=== PATIENT | female | born 1960 | race Caucasian/White ===

== ENCOUNTER 2017-12-05 19:06 | Emergency (ER) | payer OTHER ==
[~2017-12-05] VITALS: Ht 157.5 cm; Wt 68.5 kg
[~2017-12-05 19:06] MED LIST: ADVIL100 M1
== END 2017-12-05 21:13 | disposition home or self-care (01) ==
LOC: ER 19:06
DX: M65.842 Other synovitis and tenosynovitis, left hand (principal)

== ENCOUNTER 2018-05-13 21:08 | Emergency (ER) | payer OTHER ==
[~2018-05-13] VITALS: Ht 154.9 cm; Wt 68.0 kg
== END 2018-05-13 22:48 | disposition home or self-care (01) ==
LOC: ER 21:08
DX: S99.821A Other specified injuries of right foot, initial encounter (principal); X58.XXXA Exposure to other specified factors, initial encounter; Y93.89 Activity, other specified; Y92.89 Other specified places as the place of occurrence of the external cause; Y99.8 Other external cause status

== ENCOUNTER 2018-12-08 18:11 | Emergency (ER) | payer OTHER ==
[~2018-12-08] VITALS: Ht 154.9 cm; Wt 66.7 kg
== END 2018-12-08 20:29 | disposition home or self-care (01) ==
LOC: ER 18:11
DX: N30.80 Other cystitis without hematuria (principal)

== ENCOUNTER 2020-04-19 10:29 | Emergency (ER) | payer OTHER ==
[~2020-04-19] VITALS: Ht 154.9 cm; Wt 67.1 kg
[2020-04-19] MEDS ORDERED: NORFLEX100MG PO (13:07)
[2020-04-19] MEDS ORDERED: KETO10TA2 PO (13:07)
== END 2020-04-19 13:15 | disposition home or self-care (01) ==
LOC: ER 10:29
DX: M79.641 Pain in right hand (principal)

== ENCOUNTER 2020-06-04 11:58 | Emergency (ER) | payer OTHER ==
[~2020-06-04] VITALS: Ht 154.9 cm; Wt 65.3 kg
[~2020-06-04 11:58] MED LIST changes: +KETO10TA2 PO; +NORFLEX100MG PO
== END 2020-06-04 16:12 | disposition home or self-care (01) ==
LOC: ER 11:58
DX: N39.0 Urinary tract infection, site not specified (principal); N20.0 Calculus of kidney

== ENCOUNTER 2021-03-09 10:09 | Emergency (ER) | payer OTHER ==
[~2021-03-09] VITALS: Ht 154.9 cm; Wt 64.9 kg
[2021-03-09] MEDS ORDERED: METFORMIN HCL500 M3 PO (10:37)
[2021-03-09] MEDS ORDERED: LIPITOR20 MG PO (10:38)
== END 2021-03-09 18:12 | disposition home or self-care (01) ==
LOC: ER 10:09
DX: R10.9 Unspecified abdominal pain (principal); K57.30 Diverticulosis of large intestine without perforation or abscess without bleeding

== ENCOUNTER 2021-12-22 18:02 | Inpatient (IN) | payer OTHER ==
[~2021-12-22] VITALS: Ht 154.9 cm; Wt 57.6 kg
[~2021-12-22 18:02] MED LIST changes: +LIPITOR20 MG PO; +METFORMIN HCL500 M3 PO
[2021-12-26] MEDS ORDERED: ATORVASTATIN CA40 MG (15:09)
[2021-12-26] MEDS ORDERED: METFORMIN HCL500 MG PO (16:47)
[2021-12-26] MEDS ORDERED: INTESTINEX680 M1 PO (16:47)
[2021-12-26] MEDS ORDERED: LEVOFLOXACIN750 MG PO (16:47)
[2021-12-26] MEDS ORDERED: LIPITOR40 MG PO (16:47)
== END 2021-12-26 22:55 | disposition home or self-care (01) | DRG 690 ==
LOC: ER 18:02 → SEC-K 22:06 → SURH 22:06
PROVIDERS: ADMIT Internal Medicine; ATTEND Internal Medicine
PROC: BW21ZZZ Computerized Tomography (CT Scan) of Abdomen and Pelvis (ICD-10-PCS; principal; 2021-12-22)
DX: N39.0 Urinary tract infection, site not specified (principal); R31.9 Hematuria, unspecified; R30.0 Dysuria; E86.0 Dehydration; B96.20 Unspecified Escherichia coli [E. coli] as the cause of diseases classified elsewhere; K57.30 Diverticulosis of large intestine without perforation or abscess without bleeding; I10 Essential (primary) hypertension; E11.9 Type 2 diabetes mellitus without complications; Z79.84 Long term (current) use of oral hypoglycemic drugs; E78.49 Other hyperlipidemia; Z20.822 Contact with and (suspected) exposure to COVID-19

== ENCOUNTER 2024-10-27 20:52 | Emergency (ER) | payer OTHER ==
[~2024-10-27] VITALS: Ht 154.9 cm; Wt 59.0 kg
[~2024-10-27 20:52] MED LIST changes: +ATORVASTATIN CA40 MG; +INTESTINEX680 M1 PO; +LEVOFLOXACIN750 MG PO; +LIPITOR40 MG PO; +METFORMIN HCL500 MG PO
[2024-10-27] MEDS ORDERED: ARBLI10 MG/1 ML (21:42)
[2024-10-27] MEDS ORDERED: KETOROLAC TROMETHAMINE 60 MG VIAL IM ONE ×2 (23:15→23:21)
[2024-10-27] MEDS ORDERED: CEFTRIAXONE SODIUM 1,000 MG VIAL IM ONE (23:45)
[2024-10-27] MEDS ORDERED: DIPHTH,PERTUSS(ACELL),TET VAC 0.5 ML VIAL IM ONE (23:45)
[2024-10-27] MEDS ORDERED: DIPHTH,PERTUSS(ACELL),TET VAC 0.5 ML SYRINGE IM ONE (23:57)
[2024-10-27] MEDS ORDERED: CEFTRIAXONE SODIUM 1,000 MG VIAL ONE (23:57)
[2024-10-28] MEDS ORDERED: IBUPROFEN600 MG PO (00:18)
[2024-10-28] MEDS ORDERED: NORFLEX100MG PO (00:18)
== END 2024-10-28 01:55 | disposition home or self-care (01) ==
LOC: ER 21:21
DX: S49.82XA Other specified injuries of left shoulder and upper arm, initial encounter (principal); S89.81XA Other specified injuries of right lower leg, initial encounter; S59.802A Other specified injuries of left elbow, initial encounter; W19.XXXA Unspecified fall, initial encounter; Y93.89 Activity, other specified; Y92.89 Other specified places as the place of occurrence of the external cause; Y99.8 Other external cause status; I10 Essential (primary) hypertension; E11.9 Type 2 diabetes mellitus without complications; Z79.84 Long term (current) use of oral hypoglycemic drugs; Z88.5 Allergy status to narcotic agent; Z91.013 Allergy to seafood
CPT/HCPCS: 29105; 73030; 73070; 73560; 96372; 99283; J0696; J1885; J3490

== ENCOUNTER 2025-01-30 14:10 | Emergency (ER) | payer OTHER ==
[~2025-01-30] VITALS: Ht 154.9 cm; Wt 57.2 kg
[~2025-01-30 14:10] MED LIST changes: +ARBLI10 MG/1 ML; +IBUPROFEN600 MG PO
[2025-01-30] MEDS ORDERED: NORVASC2.5 M1 (14:40)
[2025-01-30 17:02] LABS: BASO % 0.6 % (0.1-1.2); EOS # 0.19 (0.04-0.54); EOS % 1.3 % (0.7-7.0); LYMPH # 5.33 (1.18-3.74); LYMPH % 37.0 % (19.3-53.1); MEAN PLATELET VOLUME 10.30 fl (9.4-12.4); MONO # 1.22 (0.24-0.82); MONO % 8.5 % (4.7-12.5); NEUT # 7.50 (1.56-6.13); NEUT % 52.1 % (34.0-71.1); RED CELL DISTRIBUTION WIDTH 13.0 % (11.6-14.4)
[2025-01-30 17:05] LABS: URINE APPEARANCE Clear; URINE BILIRRUBIN Negative (NEGATIVE); URINE BLOOD Negative; URINE COLOR Yellow; URINE GLUCOSE Negative (NEGATIVE); URINE KETONE Trace (NEGATIVE); URINE LEUKOCYTE Negative; URINE NITRATE Negative; URINE PROTEIN Negative (NEGATIVE); URINE UROBILINOGEN 0.2 E.U./dl
[2025-01-30 17:09] LABS: URINE BACTERIA 213.5 uL (0.0-1933); URINE EPITHELIAL CELLS 9.9 uL (0.0-38.8); URINE RBC 21.4 uL (0.0-20.8); URINE WBC 9.2 uL (0.0-23.2)
[2025-01-30 17:13] LABS: TYPE CELLS SQUAMOUS; URINE CAST 0.29 uL (0.0-1.40)
[2025-01-30 17:33] LABS: ALT/SGPT 21.0 U/L (12-78); AST/SGOT 10.0 U/L (15-37); BILIRUBIN TOTAL 0.48 mg/dL (0.3-1.2); BUN CREA RATIO 30.0 (7.0-25.0); CREATININE SERUM 0.57 mg/dL (0.55-1.02); GFR 106.12; GLOBULINA 4.9 G/DL (2.4-3.5); GLUCOSE FASTING 111.0 mg/dL (65-100); OSMOLALITY SERUM 287.0 MOSM/KG (275-295)
[2025-01-30] MEDS ORDERED: CIPROFLOXACIN IN 5 % DEXTROSE 400 MG/200 ML PIGGYBAG IV STA (19:16)
[2025-01-30] MEDS ORDERED: METRONIDAZOLE/SODIUM CHLORIDE 500 MG/100 ML PIGGYBACK IV STA (19:17)
[2025-01-30] MEDS ORDERED: CIPROFLOXACIN IN 5 % DEXTROSE 400 MG/200 ML PIGGYBAG IV ONE (19:33)
[2025-01-30] MEDS ORDERED: METRONIDAZOLE/SODIUM CHLORIDE 500 MG/100 ML PIGGYBACK IV ONE (19:33)
== END 2025-01-30 22:05 | disposition home or self-care (01) ==
LOC: ER 14:10
PROVIDERS: General Practice
DX: K57.32 Diverticulitis of large intestine without perforation or abscess without bleeding (principal); Z88.8 Allergy status to other drugs, medicaments and biological substances; Z91.013 Allergy to seafood
CPT/HCPCS: 36415; 74176; 96365; 99284; J0744; J3490